=== PATIENT | female | born 1945 | race Caucasian/White ===

== ENCOUNTER 2019-02-12 19:39 | Emergency (ER) | payer OTHER, MEDICAID ==
[~2019-02-12] VITALS: Ht 165.1 cm; Wt 49.9 kg
--- NOTE | 2019-02-12 21:10 | NUR ---
CALLED [facility] FOR TRANSPORT BACK TO [facility]. ETA 2HRS. WILL CALL ANOTHER SERVICE FOR [facility]ARLI[facility] PICK DUE TO NEED OF BED IN ER.
[2019-02-12] MEDS ORDERED: IPRATROPIUM BROMIDE 0.5 MG/2.5 ML NEBU NEB ONE (21:15)
[2019-02-12] MEDS ORDERED: ALBUTEROL SULFATE 2.5 MG/3 ML NEBU NEB ONE (21:15)
--- NOTE | 2019-02-12 21:18 | NUR ---
CALLED [facility] ETA [facility] WITH TRIP NUMBER [id number]
[2019-02-12] MEDS ORDERED: ALBUTEROL SULFATE 2.5 MG/3 ML NEBU ONE (21:25)
[2019-02-12] MEDS ORDERED: IPRATROPIUM BROMIDE 0.5 MG/2.5 ML NEBU ONE (21:26)
--- NOTE | 2019-02-12 22:37 | NUR ---
GAVE SBAR REPORT TO [id number]
[2019-02-12 22:56] VITALS: BP 118/75
--- NOTE | 2019-02-12 22:56 | NUR ---
PATIENT D/C'ED BACK TO [facility]
== END 2019-02-12 22:58 | disposition home or self-care (01) ==
LOC: ER 19:42
DX: B86 Scabies (principal); E78.5 Hyperlipidemia, unspecified; K21.9 Gastro-esophageal reflux disease without esophagitis; F32.9 Major depressive disorder, single episode, unspecified; Z88.8 Allergy status to other drugs, medicaments and biological substances
CPT/HCPCS: A4663; J3590